=== PATIENT | female | born 1940 | race Caucasian/White ===

== ENCOUNTER 2016-06-04 15:56 | Outpatient (CLI) | payer OTHER, MEDICARE ==
[2016-06-04 16:19] LABS: Hematocrit 41.1 % (36.0-47.0); Mean Platelet Volume 5.9 fL (7.4-10.4); Red Blood Cell (RBC) Count 4.24 mill/uL (4.20-5.40); White Blood Cell (WBC) Count 6.7 thou/uL (4.8-10.8)
== END 2016-06-04 15:57 | disposition home or self-care (01) ==
LOC: BURLAB 15:56
PROVIDERS: ATTEND Physician Assistant Medical
DX: K50.00 Crohn's disease of small intestine without complications (principal)
CPT/HCPCS: 36415; 85027

== ENCOUNTER 2016-12-30 18:09 | Emergency (ER) | payer OTHER, MEDICARE ==
[2016-12-30] MEDS ORDERED: Pantoprazole 40 MG VIAL ONE (18:35)
[2016-12-30 18:38] LABS: #Basophils 0.1 thou/uL (0.0-0.2); #Eosinphils 0.3 thou/uL (0.0-0.7); #Lymphocytes 1.2 thou/uL (1.20-3.40); #Monocytes 0.7 thou/uL (0.11-0.59); #Neutrophils 5.4 thou/uL (1.40-6.50); %Basophils 0.8 % (0.0-1.0); %Eosinophils 3.7 % (0.0-10.0); %Lymphocytes 16.1 % (21.0-51.0); %Monocytes 9.2 % (0.0-10.0); %Neutrophils 70.3 % (42.0-75.0); Hemoglobin 13.6 g/dL (12.0-16.0); Mean Corpuscular HGB CONC 33.8 g/dL (32.0-36.0); Mean Corpuscular Hemoglobin 33.7 pg (27.0-31.0); Mean Corpuscular Volume 99.7 fl (81.0-99.0); Platelet Count 220 thou/uL (130-400); RBC Distribution Width 12.5 % (11.5-14.5); Red Blood Cell (RBC) Count 4.04 mill/uL (4.20-5.40); White Blood Cell (WBC) Count 7.7 thou/uL (4.8-10.8)
[2016-12-30] MEDS ORDERED: Mag-Al Plus 1200 MG/1200 MG/120 MG/30 ML UDCUP ONE (18:42)
[2016-12-30] MEDS ORDERED: Lidocaine Viscous Sol 2% 15 ml UD Cup ONE (18:42)
[2016-12-30 18:56] LABS: CKMB 1.8 ng/mL (0-6.6)
[2016-12-30 19:00] LABS: ALT (SGPT) 20 U/L (8-55); AST (SGOT) 22 U/L (5-34); Alkaline Phosphatase 71 U/L (40-150); Anion Gap 16 mmol/L (10-20); BUN (Urea Nitrogen) 60 mg/dL (9.8-20.1); Calc. Creatinine Clearance 0 mL/min (70-130); Calcium 9.4 mg/dL (7.8-10.44); Carbon Dioxide 35 mmol/L (23-31); Chloride 93 mmol/L (98-107); Estimated GFR-MDRD 29; Glucose 108 mg/dL (83-110); Sodium 141 mmol/L (136-145)
[2016-12-30 19:04] LABS: Bilirubin, Total 0.8 mg/dL (0.2-1.2); Potassium 2.9 mmol/L (3.5-5.1)
[2016-12-30 19:05] LABS: Troponin I 0.031 ng/mL (< 0.028)
[2016-12-30] MEDS ORDERED: Nitroglycerin 0.4 MG TAB (25 Tab Bottle) ONE (19:11)
[2016-12-30] MEDS ORDERED: Potassium Chloride 20 MEQ/100 ML PREMIX BAG ONE (19:13)
[2016-12-30] MEDS ORDERED: Potassium Chloride 20 MEQ TAB ONE (19:42)
[2016-12-30 21:31] LABS: Troponin I 0.035 ng/mL (< 0.028)
--- NOTE | 2016-12-30 21:55 | RAD ---
PORTABLE CHEST: 12/30/16 An AP portable film at 1827 is compared with a 08/17/13 study. Mild cardiomegaly is about the same. There are no congestive changes or large pleural effusions. No focal pulmonary infiltrates were detected. The trachea is midline. IMPRESSION: Stable exam showing mild cardiomegaly but little change since 2013. POS: HOME
== END 2016-12-30 21:50 | disposition home or self-care (01) ==
LOC: BURERS 18:09
DX: K21.9 Gastro-esophageal reflux disease without esophagitis (principal); I48.91 Unspecified atrial fibrillation; I10 Essential (primary) hypertension; Z79.01 Long term (current) use of anticoagulants; Z79.899 Other long term (current) drug therapy
CPT/HCPCS: 71010; 80053; 82553; 83880; 84484; 85025; 93005; 96361; 96365; 96375; C9113; J3480

== ENCOUNTER 2017-03-09 10:55 | Emergency (ER) | payer OTHER, MEDICARE ==
[2017-03-09 11:56] LABS: #Basophils 0.1 thou/uL (0.0-0.2); #Lymphocytes 0.3 thou/uL (1.20-3.40); #Monocytes 0.5 thou/uL (0.11-0.59); #Neutrophils 7.6 thou/uL (1.40-6.50); %Basophils 0.7 % (0.0-1.0); %Eosinophils 0.2 % (0.0-10.0); %Lymphocytes 3.6 % (21.0-51.0); %Monocytes 5.8 % (0.0-10.0); %Neutrophils 89.8 % (42.0-75.0); Hemoglobin 13.3 g/dL (12.0-16.0); Mean Corpuscular HGB CONC 35.7 g/dL (32.0-36.0); Mean Corpuscular Hemoglobin 34.2 pg (27.0-31.0); Mean Corpuscular Volume 95.7 fl (81.0-99.0); Mean Platelet Volume 6.2 fL (7.4-10.4); Platelet Count 170 thou/uL (130-400); RBC Distribution Width 12.1 % (11.5-14.5); White Blood Cell (WBC) Count 8.4 thou/uL (4.8-10.8)
[2017-03-09 11:59] LABS: PTT 24.8 SEC (22.9-36.1)
[2017-03-09 12:00] LABS: INR-International Normal Ratio 1.1; Prothrombin Time 14.1 SEC (12.0-14.7)
[2017-03-09 12:01] LABS: D-Dimer Test 0.79 *mcg/mL (0.27-0.43)
[2017-03-09 12:04] LABS: Troponin I 0.211 ng/mL (< 0.028)
[2017-03-09 12:11] LABS: ALT (SGPT) 44 U/L (8-55); AST (SGOT) 35 U/L (5-34); Albumin 3.6 g/dL (3.4-4.8); Alkaline Phosphatase 50 U/L (40-150); Anion Gap 27 mmol/L (10-20); BUN (Urea Nitrogen) 157 mg/dL (9.8-20.1); Bilirubin, Total 0.8 mg/dL (0.2-1.2); Calc. Creatinine Clearance 0 mL/min (70-130); Calcium 8.8 mg/dL (7.8-10.44); Carbon Dioxide 25 mmol/L (23-31); Chloride 89 mmol/L (98-107); Estimated GFR-MDRD 7; Globulin 3.7 g/dL (2.4-3.5); Glucose 130 mg/dL (83-110); PLT Morphology Comment Appears Adequate; Protein, Total 7.3 g/dL (6.0-8.3); RBC Morphology Normal; Sodium 139 mmol/L (136-145)
[2017-03-09 12:16] LABS: CKMB 10.4 ng/mL (0-6.6)
[2017-03-09 12:17] LABS: Potassium 2.2 mmol/L (3.5-5.1)
[2017-03-09] MEDS ORDERED: Pot Chloride/Pot Bicarb/Cit Ac 25 mEq Effervescent Tablet ONE (12:52)
[2017-03-09] MEDS ORDERED: Potassium Chloride 20 MEQ TAB ONE (12:52)
--- NOTE | 2017-03-09 19:50 | RAD ---
PORTABLE CHEST 03/09/17 An AP portable film at 1112 is compared with a 12/30/16 study. The heart is borderline in size but unchanged from before. There is no vascular congestion, edema, or pleural effusion. The lungs are clear. Faint calcification is seen in the aortic arch as usual. The trachea is midline. IMPRESSION: Borderline heart size and arteriosclerosis, little changed since December. POS: HOME
== END 2017-03-09 13:17 | disposition short-term general hospital (02) ==
LOC: BURERS 10:55
DX: I21.4 Non-ST elevation (NSTEMI) myocardial infarction (principal); I95.9 Hypotension, unspecified; N17.9 Acute kidney failure, unspecified; E87.6 Hypokalemia; I48.91 Unspecified atrial fibrillation
CPT/HCPCS: 36415; 71010; 80053; 82553; 83605; 83880; 84443; 84484; 85025; 85379; 85610; 85730; 87040; 93005; 96360

== ENCOUNTER 2017-12-29 16:56 | Outpatient (CLI) | payer OTHER, MEDICARE ==
--- NOTE | 2017-12-29 20:13 | RAD ---
LEFT KNEE TWO VIEWS: 12/29/17 Comparison is made with a 05/12/[address] [facility]. The left knee arthroplasty has a normal postoperative appearance. There is no sign of loosening or in fection of the hardware. No specific cause for pain was seen. IMPRESSION: No significant finding. POS: HOME
--- NOTE | 2017-12-29 20:23 | RAD ---
RIGHT KNEE TWO VIEWS: 12/29/17 Comparison is made with the 05/12/16 study. Severe osteoarthritis is present with nearly complete loss of the joint space, particularly medially. Osteophytes are present as expected. The patellofemoral j oint is involved. Overall, the appearance of the arthritis and degree of it has not changed markedly in the interval. No fracture or joint effusion was seen. Some faint calcification is seen in the dist al SFA. IMPRESSION: Severe osteoarthritis, but little change since 2017. POS: HOME
== END 2017-12-29 16:57 | disposition home or self-care (01) ==
LOC: BURRAD 16:56
PROVIDERS: ATTEND Internal Medicine Rheumatology
DX: M17.11 Unilateral primary osteoarthritis, right knee (principal)